=== PATIENT | male | born 1990 | race Caucasian/White ===

== ENCOUNTER 2016-12-16 06:36 | Emergency (ER) | payer SELFPAY ==
[~2016-12-16] VITALS: Ht 185.4 cm; Wt 80.0 kg
[2016-12-16 06:39] VITALS: Ht 185.4 cm; Wt 80.0 kg
--- NOTE | 2016-12-16 07:11 | ERD ---
ER Documentation Chief Complaint Date/Time DATE: 12/16/16 TIME: 07:09 Chief Complaint rt foot injury HPI This is a 26-year-old male who presents to the emergency department today complaining of right foot and ankle pain after running and falling down some stairs yesterday. Patient states he is unable to bear weight. He has not taken any medication for the pain. States he has a previous trauma to this ankle from skateboarding. Denies any fevers or chills. ROS All systems reviewed and are negative except as per history of present illness. Medications Home Meds Active Scripts Naproxen* (Naprosyn*) 500 Mg Tablet, 500 MG PO BID Y for PAIN AND/OR INFLAMMATION, #30 TAB Prov:ROBBY KIM PA-C 12/16/16 Tramadol HCl (Tramadol HCl) 50 Mg Tablet, 50 MG PO Q4 Y for PAIN, #20 TAB Prov:ROBBY KIM PA-C 12/16/16 PMhx/Soc Medical and Surgical Hx: pt denies Medical Hx, pt denies Surgical Hx Physical Exam Vitals Vital Signs Date Time Temp Pulse Resp B/P Pulse Ox O2 Delivery O2 Flow Rate FiO2 12/16/16 06:39 98.1 88 16 161/86 98 Physical Exam Const: Sitting in wheelchair, no acute distress Head: Atraumatic Eyes: Normal Conjunctiva ENT: Normal External Ears, Nose and Mouth. Neck: Full range of motion..~ No meningismus. Resp: Clear to auscultation bilaterally Cardio: Regular rate and rhythm, no murmurs Abd: Soft, non tender, non distended. Normal bowel sounds Skin: No petechiae or rashes MSK: Right ankle with no obvious deformity. Effusion over lateral aspect. No ecchymosis. Right foot diffusely tender to palpation over dorsal aspect. Limited range of motion secondary to pain. Pulses 2+. Good cap refill. Distal neurovascularly intact. Neur: Awake and alert Psych: Normal Mood and Affect Results 24 hrs Current Medications Medications (Trade) Dose Ordered Sig/Roberth Route PRN Reason Start Time Stop Time Status Last Admin Dose Admin Ibuprofen (Motrin) 800 mg ONCE ONCE PO 12/16/16 07:30 12/16/16 07:31 DC 12/16/16 07:09 Patient: PERNELL WOODS : 1990 Age: 26 Sex: M MR #: [id number] DOS: 12/16/16 0000 Ordering MD: ROBBY KIM PA-C Location: [facility] Room/Bed: PROCEDURE: XR Ankle. CLINICAL INDICATION: Right foot and ankle pain TECHNIQUE: 3 views of the right ankle were performed. COMPARISON: Radiographs of the right foot performed same day FINDINGS: There is an acute minimally displaced intra-articular fracture at the base of the fifth metatarsal with about 2 mm of diastases and overlying soft tissue swelling. The lateral fracture line is 5 mm from the proximal tuberosity. Alignment is normal. Joint spaces are preserved. Soft tissues are otherwise grossly unremarkable. IMPRESSION: 1. Acute minimally displaced intra-articular fracture at the base of the fifth metatarsal with overlying soft tissue swelling as above. RPTAT: UU .Ángel Gentile MD, MD Date Time Electronically viewed and signed by .Ángel Gentile MD, MD on 12/16/2016 08: 12 .K/ CC: ROBBY KIM PA-C DIAGNOSTIC IMAGING REPORT Patient: PERNELL WOODS : 1990 Age: 26 Sex: M MR #: [id number] DOS: 12/16/16 0000 Ordering MD: ROBBY KIM PA-C Location: [facility] Room/Bed: PROCEDURE: XR Ankle. CLINICAL INDICATION: Right foot and ankle pain TECHNIQUE: 3 views of the right foot were performed. COMPARISON: Radiographs of the right ankle performed same day FINDINGS: There is an acute minimally displaced intra-articular fracture at the base of the fifth metatarsal with about 2 mm of diastases and overlying soft tissue swelling. The lateral fracture line is 5 mm from the proximal tuberosity. Alignment is normal. Joint spaces are preserved. Soft tissues are otherwise grossly unremarkable. IMPRESSION: 1. Acute minimally displaced intra-articular fracture at the base of the fifth metatarsal with overlying soft tissue swelling as above. RPTAT: UU .Ángel Gentile MD, Date Time Electronically viewed and signed by .Ángel Gentile MD, on 12/16/2016 08: 12 .K/ CC: ROBBY KIM PA-C Procedures/MDM This is a 26-year-old male who presents the emergency department today complaining of right foot and ankle pain after running down some stairs and twisting his ankle. Patient did have some effusion on physical exam and he is unable to bear weight and therefore did obtain images. Per the radiology report images of the right foot and ankle show an acute minimally displaced intra-articular fracture at the base of the fifth metatarsal without overlying soft tissue swelling as above. The lateral fracture line is 5 mm from the proximal tuberosity. Joint spaces are preserved. This is likely the source of the patient's pain Patient was given Motrin, Ernst wrap, a splint and crutches here in the emergency department. Patient was distally neurovascularly intact pre-and post splint application. Patient will be given a prescription for tramadol, Naprosyn for home At this time the patient is stable for discharge and outpatient management. Patient should follow up with their PCP in the next 1-2 days. They may return to the emergency department sooner for any persistent or worsening of symptoms. Patient understood and agreed with the plan. Departure Diagnosis: Primary Impression: Foot fracture, right Encounter type: initial encounter Fracture type: closed Qualified Code: S92.901A - Foot fracture, right, closed, initial encounter Condition: Fair ROBBY KIM PA-C Dec 16, 2016 07:11
[2016-12-16] MEDS ORDERED: IBUPROFEN 800 MG TAB PO ONE (07:30)
--- NOTE | 2016-12-16 08:12 | RADRPT ---
PROCEDURE: XR Ankle. CLINICAL INDICATION: Right foot and ankle pain TECHNIQUE: 3 views of the right ankle were performed. COMPARISON: Radiographs of the right foot performed same day FINDINGS: There is an acute minimally displaced intra-articular fracture at the base of the fifth metatarsal w ith about 2 mm of diastases and overlying soft tissue swelling. The lateral fracture line is 5 mm fr om the proximal tuberosity. Alignment is normal. Joint spaces are preserved. Soft tissues are otherwise grossly unremarkable. IMPRESSION: 1. Acute minimally displaced intra-articular fracture at the base of the fifth metatarsal with overl elan soft tissue swelling as above. RPTAT: UU .Ángel Gentile MD, MD Date Time Electronically viewed and signed by .Ángel Gentile MD, on 12/16/2016 08:12 .K/
--- NOTE | 2016-12-16 08:13 | RADRPT ---
PROCEDURE: XR Ankle. CLINICAL INDICATION: Right foot and ankle pain TECHNIQUE: 3 views of the right foot were performed. COMPARISON: Radiographs of the right ankle performed same day FINDINGS: There is an acute minimally displaced intra-articular fracture at the base of the fifth metatarsal w ith about 2 mm of diastases and overlying soft tissue swelling. The lateral fracture line is 5 mm fr om the proximal tuberosity. Alignment is normal. Joint spaces are preserved. Soft tissues are otherwise grossly unremarkable. IMPRESSION: 1. Acute minimally displaced intra-articular fracture at the base of the fifth metatarsal with overl elan soft tissue swelling as above. RPTAT: UU .Ángel Gentile MD, MD Date Time Electronically viewed and signed by .Ángel Gentile MD, on 12/16/2016 08:12 .K/
[2016-12-16] MEDS ORDERED: TRAM50TA2 PO (08:28)
[2016-12-16] MEDS ORDERED: NAPR-260 PO (08:29)
== END 2016-12-16 08:46 | disposition home or self-care (01) ==
LOC: FTE 06:36
DX: S92.901A Unspecified fracture of right foot, initial encounter for closed fracture (principal); W10.9XXA Fall (on) (from) unspecified stairs and steps, initial encounter; Y92.9 Unspecified place or not applicable
CPT/HCPCS: 73630